=== PATIENT | male | born 1990 | race Caucasian/White ===

== ENCOUNTER 2020-10-22 17:46 | Inpatient (IN) | payer OTHER, SELFPAY ==
[2020-10-22 18:31] VITALS: BMI 23.3
[2020-10-22 19:21] VITALS: BP 106/99; PULSE 72; RESP 20; TEMP 36.6
[2020-10-22 19:57] LABS: Glucose, Whole Blood 178 mg/dL (60-115)
[2020-10-22 20:57] LABS: Glucose, Whole Blood 311 mg/dL (60-115)
--- NOTE | 2020-10-22 22:07 | PM.IMHP ---
History of Present Illness Date of Service: 10/22/20 Chief Complaint: admission H&P this is a 30-year-old male with past medical history of depression, tobacco use, and type 1 diabetes who is admitted to [facility] for depression. patient reports that while he was in the outside hospital prior to transfer he was treated for a tick bite with 3 day of doxycycline. He reports no erythema, no rash, he has a red spot at the side of the take attachment in the middle of the abdomen. He does not know how long the tick was attached 4, it was found at the hospital new was removed at the hospital 3 days ago. He reports that he has generalized body aches that he would like Tylenol for. He smokes about 2 packs of cigarettes a day and would like to be on lozenges and nicotine patch. He is a type 1 diabetic and he takes insulin. He reports that he was admitted initially to the outside hospital for DKA he was managed and sent to [facility] for depression and possible suicidal ideation. vitals reviewed, normal Review of Systems Review of Systems: Yes all other systems are reviewed and are negative [facility] Medical History (Updated 10/23/20 @ 06:40 by Nicci Weiss MD) Diabetes type I Social History Household Members: Friend(s) Housing: Apartment Do you presently have visiting nurse or other home services: No Patient Tobacco Use Status: Current everyday Tobacco user Tobacco use type: Cigarette Cigarette Packs Per Day: 2 Cigarettes Per Day: 40.0 Smoked in Last 30 Days: Yes Patient Interested in Nicotine Replacement: Yes Patient Given Instructions on How to Stop Smoking: Yes Date Education Initiated: 10/22/20 Second Hand Smoke Exposure: No Use of substances other than those prescribed or required for medical reasons: Yes Substance Use Type: Marijuana Substance Use Frequency: Daily Last Used Substance: Just Prior to Admission Currently Displaying Signs/Symptoms of Drug Intoxication Withdrawal: No Any prior treatment program specific to substance use: No Do you feel safe in your current relationship?: No Current Relationship Is there a partner from a previous relationship who is making you feel unsafe now?: No Are you made to feel afraid or neglected: No Advance Directives: No Advance Directives Information Provided: No Do you have thoughts of harming others: None Do you have a plan to hurt others: No Plan Recently lost weight without trying: No Eating poorly because of decreased appetite: No Nutrition Risks: No Nutritional Risk Poor oral hygiene: No Meds Allergies Allergy/AdvReac Type Severity Reaction Status Date / Time Penicillins Allergy Unknown Hives Verified 10/22/20 18:34 aripiprazole AdvReac Severe Tongue Verified 10/22/20 18:37 [From Abilify MyCite] swells ziprasidone [From Geodon] AdvReac Severe Tongue Verified 10/22/20 18:36 swelling risperidone AdvReac Intermediate Gynophelia Verified 10/22/20 18:38 mold AdvReac Swelling Verified 10/22/20 18:39 Active Medications: Current Medications Generic Name Dose Route Start Last Admin Trade Name Freq PRN Reason Stop Dose Admin Acetaminophen 650 mg 10/22/20 19:51 Acetaminophen 325 Mg Tablet PO Q6H PRN Headache/Pain Mild Scale (1-3) Al Hydroxide/Mg Hydroxide 30 ml 10/22/20 19:51 Magnesium Hydrox/Alum Hydrox 30 Ml Oral.Susp PO Q6H PRN Heartburn/Nausea Hydroxyzine HCl 25 mg 10/22/20 19:51 Hydroxyzine Hcl 25 Mg Tablet PO BEDTIME PRN Anxiety Insulin Glargine 10 unit 10/23/20 10:00 Insulin Glargine,Hum.Rec.Anlog 100 Unit/Ml 10 Ml Vial SUBCUT DAILY [facility] Insulin Human Lispro 0 unit 10/23/20 07:30 Insulin Lispro 100 Unit/Ml 3 Ml Vial SUBCUT QIDACHS [facility] Protocol Magnesium Hydroxide 30 ml 10/22/20 19:51 Milk Of Magnesia 30 Ml Oral.Susp PO DAILY PRN Constipation Nicotine 21 mg 10/22/20 20:00 10/22/20 20:17 Nicotine 21 Mg Patch.Td24 TRANSDERMA Not Given DAILY [facility] Trazodone HCl 50 mg 10/22/20 19:51 Trazodone Hcl 50 Mg Tablet PO BEDTIME PRN Insomnia Home Medications Medication Instructions Recorded Confirmed Last Taken Type Humalog U-100 Insulin 6 units SUBCUT 10/22/20 10/22/20 04:00 History 6 U Lantus U-100 Insulin 30 units SUBCUT DIRECTED 10/22/20 10/22/20 10/22/20 08:00 History 30 Physical Exam Vital Signs and Narrative: Vital Signs: Last Vital Signs Temp 97.8 F 10/22/20 19:21 Pulse 72 10/22/20 19:21 Resp 20 10/22/20 19:21 BP 106/99 H 10/22/20 19:21 Body Mass Index 23.3 Const: General: cooperative and no acute distress Orientation/consciousness: patient oriented x3 Eyes: General: appearance normal, both eyes and all related structures Resp: Effort & Inspection: normal respiratory effort and able to speak in complete sentences Cardio: Rate: regular rate Rhythm: regular rhythm GI: Palpation (GI): Soft to palpation Auscultation: normal bowel sounds Skin: General skin exam: no rashes or lesions noted Neuro: General: patient oriented x3 Cognition (Neuro): normal cognition Extrem: General: Yes normal to inspection and Yes no pedal edema Results Labs Labs: Laboratory Results - last 24 hr 10/22/20 10/22/20 19:54 20:53 POC Glucose 178 H 311 H Assessment and Plan (1) Tick bite: Status: Acute (2) Depression with anxiety: Status: Acute (3) Diabetes type I: Status: Inactive (4) Tobacco use: Status: Acute 30-year-old male who is being admitted to [facility] for management of depression. We are asked to see him for medical admission H&P # diabetes type 1 - continue home insulin - will add low-dose sliding scale insulin - diabetic diet # tick bite - patient received 3 doses of doxycycline at outside hospital - has no erythema migrans lesion - per guidelines for prophylaxis of Lyme disease 1 dose of doxycycline is adequate - monitor for new rash, fevers, joint pain # tobacco use disorder - will start him a nicotine patch as well as lozenges p.r.n. for cravings # anxiety and depression - management per psychiatrist Quality Stroke Does the patient have a stroke diagnosis?: No VTE Prior VTE?: No VTE Risk Level:: Medical - low VTE Device Contraindication: Treatment Not Indicated VTE Drug Contraindication: Treatment Not Indicated
[2020-10-22] MEDS: traZODone HCL 50 MG TABLET PO (22:09)
--- NOTE | 2020-10-22 22:19 | PC.ADMIT ---
Pt arrived on M5 at 1805 via stretcher [facility]. Pt is an30 year old male. Pt and recently . Pt signed a CV and a 3 day notice. Pt reports being thrown out of his Mother in laws house. He was out of insulin and could not go back to get it because she would not let him in. He reports not wanting to end his life. Pt reports he and his are trying to work things out. Pt did not expect to come here and is not happy to be here. He feels he is fine. Pt has providers in [place]. Pt is not on any Psych meds. Pt is an insulin dependent diabetic. Pt is pleasant and cooperative. Pt reports he is safe and does not want to harm himself. Pt will live with a friend in [place] when dischaarchged. Pt smokes ciggaretes and marijuaana daily.
[2020-10-23 06:00] VITALS: BP 104/58; PULSE 78; RESP 16; TEMP 36.3; O2SAT 97
[2020-10-23 07:08] LABS: MANUAL DIFF FLAG NO
[2020-10-23 07:14] LABS: Basophils Percent Auto 0.7 % (0-2); Eosinophils Absolute Auto 0.2 X10*3/uL (0.0-0.4); Eosinophils Percent Auto 3.2 % (0-4); Hematocrit 43.3 % (42-52); Hemoglobin 14.5 g/dl (14.0-18.0); Imm Gran Abs Auto 0.04 X10*3/uL (0.00-0.03); Imm Gran Pct Auto 0.7 % (0.0-0.4); Lymphocytes Absolute Auto 2.6 X10*3/uL (1.2-4.9); Mean Corpuscular HGB Conc 33.5 g/dl (31.0-36.0); Mean Corpuscular Hemoglobin 29.6 pg (27.0-33.0); Mean Corpuscular Volume 88.4 fL (80-98); Mean Platelet Volume 9.9 fL (9.4-12.4); Monocytes Absolute Auto 0.6 X10*3/uL (0.1-1.2); Neutrophils Absolute Auto 2.2 X10*3/uL (2.0-8.3); Neutrophils Percent Auto 39.4 % (45-73); Platelet Count 259 X10*3/uL (160-400); Red Cell Distribution Width 13.1 % (11.0-16.0); White Blood Count 5.7 X10*3/uL (4.8-10.8)
[2020-10-23 07:39] LABS: Alanine Aminotransferase 19 U/L (0-40); Albumin Level 4.3 g/dL (3.5-5.0); Alkaline Phosphatase 86 U/L (39-117); Anion Gap 12 (12-20); Aspartate Amino Transferase 15 U/L (5-37); Bilirubin Direct 0.2 mg/dL (0.0-0.5); Bilirubin Total 0.4 mg/dL (0.0-1.0); Blood Urea Nitrogen 18 mg/dL (9-16); Calcium 9.7 mg/dL (8.4-10.2); Carbon Dioxide 28 mmol/L (22-29); Chloride 101 mmol/L (96-108); Cholesterol 228 mg/dL; Creatinine Clr Calc Pharmacy 102.8; Estimated Glomerular Filt Rate > 60; Glucose Fasting 310 mg/dL (60-99); HDL Cholesterol 38 mg/dL; LDL Cholesterol Calculated 158 mg/dl; Potassium 4.5 mmol/L (3.3-5.1); Sodium 136 mmol/L (135-145); Total Protein 6.6 g/dL (6.5-8.0); Triglycerides 162 mg/dL
[2020-10-23 07:59] LABS: Free T4 (Free Thyroxine) 1.07 ng/dL (0.71-1.85); Thyroid Stimulating Hormone 2.42 uIU/mL (0.32-4.0)
[2020-10-23 08:09] LABS: Estimated Average Glucose 309 mg/dL; Hemoglobin A1c % 12.4 %
[2020-10-23 08:33] LABS: Glucose, Whole Blood 318 mg/dL (60-115)
[2020-10-23] MEDS: Insulin Lispro 100 UNIT/ML 3 ML VIAL SUBCUT ×5 (08:36→21:30)
[2020-10-23] MEDS: Insulin Glargine,Hum.rec.anlog 100 UNIT/ML 10 ML VIAL 10 UNIT SUBCUT (08:40)
[2020-10-23] MEDS: Nicotine 21 MG PATCH.TD24 TRANSDERMA (08:44)
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
[2020-10-23 12:22] LABS: Glucose, Whole Blood 210 mg/dL (60-115)
[2020-10-23] MEDS: Acetaminophen 325 MG TABLET 650 MG PO (14:09)
[2020-10-23 16:20] VITALS: BP 101/54; PULSE 86; TEMP 36.8
[2020-10-23] MEDS: Ibuprofen 600 MG TABLET PO (18:57)
[2020-10-23 20:28] LABS: Glucose, Whole Blood 394 mg/dL (60-115)
[2020-10-23 21:26] LABS: Glucose, Whole Blood 248 mg/dL (60-115)
[2020-10-23] MEDS: Perphenazine 4 MG TABLET PO (22:08)
[2020-10-23] MEDS: Doxepin HCl 10 MG CAPSULE PO (22:08)
[2020-10-23] MEDS: Divalproex Sodium ER 500 MG TAB.ER.24H 1500 MG PO (22:08)
[2020-10-24 06:00] VITALS: BP 102/55; PULSE 67; RESP 18
[2020-10-24 07:00] VITALS: BMI 23.4
[2020-10-24] MEDS: Perphenazine 4 MG TABLET PO (08:31)
[2020-10-24] MEDS: Insulin Glargine,Hum.rec.anlog 100 UNIT/ML 10 ML VIAL 10 UNIT SUBCUT (08:32)
[2020-10-24] MEDS: Nicotine 21 MG PATCH.TD24 TRANSDERMA (08:32)
[2020-10-24] MEDS: Insulin Lispro 100 UNIT/ML 3 ML VIAL SUBCUT ×3 (08:50→13:52)
[2020-10-24 11:58] LABS: Glucose, Whole Blood 381 mg/dL (60-115)
[2020-10-24 12:23] LABS: Glucose, Whole Blood 404 mg/dL (60-115)
[2020-10-24] MEDS: LORazepam 0.5 MG TABLET PO ×2 (12:30→14:28)
[2020-10-24] MEDS: Ibuprofen 600 MG TABLET PO (14:28)
--- NOTE | 2020-10-24 15:04 | P.DS_ITS ---
DS: Providers Provider Date of Service: 10/24/20 Date of admission: 10/22/20 17:46 Primary care physician: Unknown Physician Consults: 10/22/20 19:51 Consult to Hospitalist Routine Consulting Provider: Hospitalist Reason For Exam: new admission, diabetic IDDM DS: Diagnosis Discharge Diagnosis (1) Bipolar II disorder major depressive with atypical features: Status: Acute DS: Medications Discharge Medications Home Medications: Previous Rx's Medication Instructions Recorded Humalog U-100 Insulin #1 ea 10/24/20 divalproex 1,500 mg PO BEDTIME #90 tab 10/24/20 doxepin 10 mg PO BEDTIME #30 cap 10/24/20 insulin glargine [Lantus U-100 20 unit SUBCUT DAILY #10 ml 10/24/20 Insulin] lorazepam 0.5 mg PO TID #45 tab 10/24/20 nicotine 21 mg TRANSDERMAL DAILY #30 ea 10/24/20 nicotine (polacrilex) 4 mg BUCCAL Q2H PRN #30 ea 10/24/20 perphenazine 4 mg PO BID #60 tab 10/24/20 Mental Status Exam Mental Status Exam Narrative: Appearance: thin male with several tatooes on arms, casually groomed, fair hygiene, in NAD Behavior: calm, cooperative Psychomotor: no agitation or retardation noted Speech: clear, normal rate/rhythm/volume, spontaneous TP: linear TC: no signs of psychosis, glad to be alive, wanting to be discharged Mood: better Affect:brighter, non labile SI:adamantly denies HI:none AH/VH:none Delusions:none Insight/judgment:fair x 2. Memory/cog: alert, oriented x 3. grossly intact to conversational testing. Data Data Completed and Pending Completed studies during hospitalization [Text1]: 10/22/20 10/22/20 10/23/20 19:54 20:53 06:52 WBC 5.7 RBC 4.90 Hgb 14.5 Hct 43.3 MCV 88.4 MCH 29.6 MCHC 33.5 RDW 13.1 Plt Count 259 MPV 9.9 Immature Gran % (Auto) 0.7 H Neut % (Auto) 39.4 L Lymph % (Auto) 46.0 H [place] % (Auto) 10.0 Eos % (Auto) 3.2 Baso % (Auto) 0.7 Lymph # (Auto) 2.6 [place] # (Auto) 0.6 Eos # (Auto) 0.2 Baso # (Auto) 0.0 Abs Immat Gran (auto) 0.04 H Absolute Neuts (auto) 2.2 Absolute Nucleated RBC 0.000 Nucleated RBC % (auto) 0.0 Sodium Potassium Chloride Carbon Dioxide Anion Gap BUN Creatinine Estim Creat Clear Calc Estimated GFR POC Glucose 178 H 311 H Fasting Glucose Estimat Average Glucose Hemoglobin A1c % Calcium Total Bilirubin Direct Bilirubin AST ALT Alkaline Phosphatase Total Protein Albumin Triglycerides Cholesterol LDL Cholesterol, Calc HDL Cholesterol TSH Free T4 10/23/20 10/23/20 10/23/20 06:52 06:52 08:30 WBC RBC Hgb Hct MCV MCH MCHC RDW Plt Count MPV Immature Gran % (Auto) Neut % (Auto) Lymph % (Auto) [place] % (Auto) Eos % (Auto) Baso % (Auto) Lymph # (Auto) [place] # (Auto) Eos # (Auto) Baso # (Auto) Abs Immat Gran (auto) Absolute Neuts (auto) Absolute Nucleated RBC Nucleated RBC % (auto) Sodium 136 Potassium 4.5 Chloride 101 Carbon Dioxide 28 Anion Gap 12 BUN 18 H Creatinine 1.00 Estim Creat Clear Calc 102.8 Estimated GFR > 60 POC Glucose 318 H Fasting Glucose 310 H Estimat Average Glucose 309 Hemoglobin A1c % 12.4 Calcium 9.7 Total Bilirubin 0.4 Direct Bilirubin 0.2 AST 15 ALT 19 Alkaline Phosphatase 86 Total Protein 6.6 Albumin 4.3 Triglycerides 162 Cholesterol 228 LDL Cholesterol, Calc 158 HDL Cholesterol 38 TSH 2.42 Free T4 1.07 10/23/20 10/23/20 10/23/20 12:14 17:13 21:21 WBC RBC Hgb Hct MCV MCH MCHC RDW Plt Count MPV Immature Gran % (Auto) Neut % (Auto) Lymph % (Auto) [place] % (Auto) Eos % (Auto) Baso % (Auto) Lymph # (Auto) [place] # (Auto) Eos # (Auto) Baso # (Auto) Abs Immat Gran (auto) Absolute Neuts (auto) Absolute Nucleated RBC Nucleated RBC % (auto) Sodium Potassium Chloride Carbon Dioxide Anion Gap BUN Creatinine Estim Creat Clear Calc Estimated GFR POC Glucose 210 H 394 H* 248 H Fasting Glucose Estimat Average Glucose Hemoglobin A1c % Calcium Total Bilirubin Direct Bilirubin AST ALT Alkaline Phosphatase Total Protein Albumin Triglycerides Cholesterol LDL Cholesterol, Calc HDL Cholesterol TSH Free T4 10/24/20 10/24/20 08:29 12:18 WBC RBC Hgb Hct MCV MCH MCHC RDW Plt Count MPV Immature Gran % (Auto) Neut % (Auto) Lymph % (Auto) [place] % (Auto) Eos % (Auto) Baso % (Auto) Lymph # (Auto) [place] # (Auto) Eos # (Auto) Baso # (Auto) Abs Immat Gran (auto) Absolute Neuts (auto) Absolute Nucleated RBC Nucleated RBC % (auto) Sodium Potassium Chloride Carbon Dioxide Anion Gap BUN Creatinine Estim Creat Clear Calc Estimated GFR POC Glucose 381 H* 404 H* Fasting Glucose Estimat Average Glucose Hemoglobin A1c % Calcium Total Bilirubin Direct Bilirubin AST ALT Alkaline Phosphatase Total Protein Albumin Triglycerides Cholesterol LDL Cholesterol, Calc HDL Cholesterol TSH Free T4 DS: Summary Hospital Course Hospital Course: Mr. Martinez is a 30 year-old male with hx of Bipolar disorder, PTSD who was initially transported to [facility] and admitted to ICU for DKA. Pt apparently had argument with mother in law with whom he is living with his and daughter. He reports leaving the home as mother in law threatened to call police. He left without his insulin and went briefly to uncles home in [place] and then stayed in tent with friend who subsequently found him unresponsive and brought him to [facility]. While at [facility], there was question of whether not taking insulin was suicide attempt. On the unit, Mr. Martinez adamantly denies that not taking insulin for his DM type 1 was a suicide attempt. He admits it was a poor choice as he left his mother in law's house but also states he did not think it was going to be cause of such medical complication. Pt understands that he was in very critical condition and could have . He reports feeling grateful that he did not . He identifies his and daughter as protective factors. He does report some conflict with but thinks that they can eventually work things through. He reports history of PTSD, anxiety, depression. He does hx of suicide attempts one one year ago when he tried to OD but his stopped him and back in 2016 when he tried to h and himself but his father stopped him. He reports this time was not like before and that he did not have any intentions to end his life. He reports being on wait list for psychiatry. He reports he has been on combination of perphenazine, depakote and doxepine, which he thinks is working well for the most part. He denies hx of VH/AH. He is currently not working. He was living in [place] and eventually planning to return there but not with his mother in law with whom he has a strained relationship. Medical Evaluation Reviewed: Yes HOSPITAL COURSE Mr. Martinez was admitted on CV and placed on 15 minutes checks for safety. He continued to denied that not using insulin was a suicide attempt. Collateral information gathered from his uncle who denied any safety concerns and agreed that pt could stay with him as he currently is having problems with and mother in law with whom he used to reside. We discussed risks, benefits and alternative treatment options. 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 He was visible in the unit. He attended assigned groups. he was social with select peers. Denied suicidal ideation throughout this admission. He presented as future oriented in that he was looking forward to see his daughters, see his uncle, continue OP psychiatric treatment. There were no incidences of disruptive behaviors nor use of restraints. He was sleeping and sleeping well, attending to his hygiene. Time spent discussing smoking cessation with patient: 3 to 10 minutes Status at Discharge Cognitive/behavioral status at discharge: Pt denied suicidal or homicidal ideation. Pt's affect is brighter, non labile. He is future oriented. No signs of visual or auditory hallucinations. No signs of aggression towards self or others. Functional status at discharge: independent ambulation Overall status at discharge: patient is progressing back to baseline Time Spent with Patient Time attestation: Total time spent providing and/or coordinating discharge services: Time spent: Greater than 30 minutes Discharge Plan Discharge Patient Disposition: Home, Self-Care Discharge Diagnosis: Bipolar 2 Disorder Referrals: Therapy & Psychiatry [Other] (Referral submitted. They will follow up directly with you (at uncle's number) to provide appointments. All appointments are currently telehealth) AYLEEN MUNSON [Other] - 10/30/20 11:55 am (VIDEO) Discharge Medications: New Lantus U-100 Insulin 100 unit/mL Solution 20 unit subcut DAILY Qty: 10 RF: 0 doxepin 10 mg Capsule 10 mg PO BEDTIME Qty: 30 RF: 0 lorazepam 0.5 mg Tablet 0.5 mg PO TID Qty: 45 RF: 0 divalproex 500 mg Tablet Extended Release 24 Hr 1,500 mg PO BEDTIME Qty: 90 RF: 0 perphenazine 4 mg Tablet 4 mg PO BID Qty: 60 RF: 0 nicotine 21 mg/24 hr Patch 24 Hour 21 mg transdermal DAILY Qty: 30 RF: 0 nicotine (polacrilex) 4 mg Mini Lozenge 4 mg buccal Q2H PRN (Reason: Nicotine Cravings) Qty: 30 RF: 0 Changed (DME) Humalog U-100 Insulin bottle See Rx Instructions .Route .MEDSUPPLY Qty: 1 RF: 0 Discontinued Lantus U-100 Insulin 30 units subcut DIRECTED RF: 0 Discharge Orders: Discharge Order (Routine); Ordered 10/24/20 Ordered By: Latricia Berman Diet: diabetic diet Activity on Discharge: As tolerated Stand Alone Forms: Patient Portal Discharge page Care Plan Goals: 1. maintain mood 2. No SI/HI Health Concerns: 1. Follow up with PCP re: DM management Plan of Treatment: 1. Take medications as prescribed. 2. Go to nearest ED or call 911 in event of emergency Assessment: Pt with no SI/HI. Mood stable. Discharge Date/Time: 10/24/20 17:02
--- NOTE | 2020-10-24 15:49 | PC.NURSE ---
PT HAS BEEN VISIBE ON THE UNIT AND SOCIAL WITH PEERS. PT HAS BEEN ATTENDING GROUPS AND PRACTICING COPING SKILLS. PT IS GOAL ORIENTED. HE DENIES EPRESSION OR ANXIETY. HE DENIES ANY SUICIDAL OR HOMICIDAL IDEATIONS. PT IS NOT EXPERIENCING HALLUCINATIONS, DELUSIONS, OR PARANOIA. PT HAS BEEN EATING AND SLEEPING ADEQUATELY. PTS MOOD HAS BEEN STABLE. HE HAS BEEN MEDICATION COMPLIANT. PTS APPOINTMENTS HAVE BEEN MADE. PTS PAPERWORK WILL BE FAXED TO PROVIDERS PER PROTOCOL.
== END 2020-10-24 17:02 | disposition home or self-care (01) | DRG 753 ==
PROVIDERS: Clinical Nurse Specialist Psychiatric/Mental Health; Admitting Provider Psychiatry & Neurology Psychiatry; Visit Provider Social Worker
DX: F31.81 Bipolar II disorder (principal); E10.9 Type 1 diabetes mellitus without complications; F17.210 Nicotine dependence, cigarettes, uncomplicated; F41.9 Anxiety disorder, unspecified; Z91.14 Patient's other noncompliance with medication regimen; Z71.6 Tobacco abuse counseling; Z91.5 Personal history of self-harm; Z88.0 Allergy status to penicillin; Z79.4 Long term (current) use of insulin; Z79.899 Other long term (current) drug therapy
CPT/HCPCS: 36415; 80053; 80061; 80076; 82947; 83036; 84439; 84443; 85025